=== PATIENT | male | born 1975 | race Caucasian/White ===

== ENCOUNTER 2017-10-26 17:17 | Emergency (ER) | payer BC ==
--- NOTE | 2017-10-26 17:53 | ED ---
Lower Extremity Injury HPI - General Chief Complaint: Extremity Injury, Lower Stated Complaint: left anlke injury Time Seen by Provider: 10/26/17 17:33 Source: patient, RN notes reviewed, old records reviewed Mode of arrival: ambulatory Limitations: no limitations - History of Present Illness Initial Comments: This Patient is a 42-year-old male presents range from states she complaint of left ankle injury. He reports he was running and twisted his foot and ankle on a tree root. He reports that he has severe swelling over the lateral malleolus. He reports that she's had ankle sprains of this ankle before. Denies any pain in the foot. No other injuries related to the ankle sprain or fall. - Related Data Previous Rx's Medication Instructions Recorded Ibuprofen [Motrin] 600 mg PO Q8HR PRN #20 tab 10/26/17 Allergies Allergy/AdvReac Type Severity Reaction Status Date / Time No Known Allergies Allergy Verified 10/26/17 17:28 Review of Systems ROS Statement: Those systems with pertinent positive or pertinent negative responses have been documented in the HPI. ROS Other: All systems not noted in ROS Statement are negative. Past Medical History Past Medical History: No Reported History History of Any Multi-Drug Resistant Organisms: None Reported Past Surgical History: Orthopedic Surgery Additional Past Surgical History / Comment(s): left ankle surgery Past Psychological History: No Psychological Hx Reported Smoking Status: Never smoker Past Alcohol Use History: None Reported Past Drug Use History: None Reported General Exam - General Exam Comments Initial Comments: 5 year D2-year-old male. Alert and oriented. No acute distress. Limitations: no limitations General appearance: alert, in no apparent distress Head exam: Present: atraumatic, normocephalic, normal inspection Eye exam: Present: normal appearance, PERRL, EOMI. Absent: scleral icterus, conjunctival injection, periorbital swelling ENT exam: Present: normal exam, mucous membranes moist Neck exam: Present: normal inspection. Absent: tenderness, meningismus, lymphadenopathy Respiratory exam: Present: normal lung sounds bilaterally. Absent: respiratory distress, wheezes, rales, rhonchi, stridor Cardiovascular Exam: Present: regular rate, normal rhythm, normal heart sounds. Absent: systolic murmur, diastolic murmur, rubs, gallop, clicks GI/Abdominal exam: Present: soft, normal bowel sounds. Absent: distended, tenderness, guarding, rebound, rigid Extremities exam: Present: full ROM, normal capillary refill. Absent: normal inspection, tenderness, pedal edema, joint swelling, calf tenderness Left Knee exam: Present: normal inspection, full ROM Lower Leg exam: Present: normal inspection, full ROM Ankle exam: Present: full ROM, tenderness (lateral malleoulus), swelling. Absent: normal inspection Foot/Toe exam: Present: normal inspection, full ROM Gait: observed and limited by pain Back exam: Present: normal inspection Neurological exam: Present: alert, oriented X3, CN II-XII intact Psychiatric exam: Present: normal affect, normal mood Skin exam: Present: warm, dry, intact, normal color. 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 Patient had immediate swelling. Previous surgery on the ankle when he was 17 years old. Patietn has swelling over lateral malleolus. NV intact. Xray shows no fracture, diffuse soft tissue swelling. Patient placed in air cast and LEONEL wrap. Following up with orthopedic. Given Rx for crutches and motrin. REturn paramters discussed. - Radiology Data Radiology results: report reviewed Xray shows soft tissue swelling, no fracture. Disposition Clinical Impression: Ankle sprain Disposition: HOME SELF-CARE Condition: Good Instructions: Ankle Sprain (ED) Additional Instructions: Patient has follow-up with primary care physician and language specialist. Patient to remain in the splint and Leonel wrap. Ambulate with crutches. Motrin Tylenol for pain. Prescriptions: Ibuprofen [Motrin] 600 mg PO Q8HR PRN #20 tab PRN Reason: Pain Is patient prescribed a controlled substance at d/c from ED?: No When asked, does pt state using other controlled substances?: No If prescribed controlled substance>3 days was MAPS reviewed?: No If opioid is for acute pain is fill amount 7 days or less?: No If Rx opioid, was Start Talking consent form obtained?: No Referrals: Aris Villeda MD [Primary Care Provider] - 1-2 days Jose Hayes MD [STAFF PHYSICIAN] - 1-2 days Time of Disposition: 18:59
[2017-10-26 19:12] VITALS: BP 138/64; PULSE 78; RESP 16; TEMP 97.8
--- NOTE | 2017-10-26 20:03 | XR ---
EXAMINATION TYPE: XR ankle complete LT DATE OF EXAM: 10/26/2017 COMPARISON: NONE HISTORY: Twisted ankle TECHNIQUE: 3 views FINDINGS: There is soft tissue swelling over the lateral malleolus. Ankle mortise is anatomic. IMPRESSION: Soft tissue swelling. No fracture seen.
== END 2017-10-26 19:11 | disposition home or self-care (01) ==
LOC: EC 17:17
DX: S93.402A Sprain of unspecified ligament of left ankle, initial encounter (principal); Z98.890 Other specified postprocedural states; X50.1XXA Overexertion from prolonged static or awkward postures, initial encounter; W01.0XXA Fall on same level from slipping, tripping and stumbling without subsequent striking against object, initial encounter; Y92.89 Other specified places as the place of occurrence of the external cause; Y93.02 Activity, running
CPT/HCPCS: 99284